=== PATIENT | male | born 1960 | race Caucasian/White ===

== ENCOUNTER 2024-11-30 08:47 | Outpatient (CLI) | payer MEDICARE, BC, SELFPAY | END 2024-12-02 23:59 | disposition home or self-care (01) | DX: Z02.83 Encounter for blood-alcohol and blood-drug test (principal) | CPT/HCPCS: 80320 ==

== ENCOUNTER 2024-11-30 19:33 | Outpatient (CLI) | payer MEDICARE, BC, SELFPAY | END 2024-11-30 23:59 | disposition home or self-care (01) | LOC: LAB 19:40 | DX: Z02.83 Encounter for blood-alcohol and blood-drug test (principal) ==